=== PATIENT | male | born 1990 | race Caucasian/White ===

== ENCOUNTER 2018-02-16 16:08 | Emergency (ER) | payer SELFPAY ==
[2018-02-16 16:09] VITALS: PULSE 138; RESP 17; O2SAT 100
[2018-02-16 16:10] VITALS: BP 147/96; PULSE 132; RESP 17; TEMP 37.4; O2SAT 100; BMI 19.8
--- NOTE | 2018-02-16 16:16 | NURSING ---
NO OLD EKGS
--- NOTE | 2018-02-16 16:18 | RAD_ITS ---
STUDY: X-RAY CHEST REASON FOR EXAM: Male, 27 years old. Chest pain, anxiety. TECHNIQUE: Portable chest. COMPARISON: None. FINDINGS: The lungs are clear and expanded. There is no demonstrated pleural abnormality. Normal size heart. Normal mediastinum and irena. Normal visualized pulmonary arteries. Normal visualized aortic arch and descending thoracic aorta. Normal visualized thoracic spine. Normal visualized ribs, clavicles, and shoulders. There is no demonstrated abnormality of the visualized soft tissue structures of the upper abdomen. RAD/Chest 1 View (Portable) IMPRESSION: Normal x-ray examination of the chest. Electronically Signed: Yoly Santos MD at 17:05 EST Tel , Service support ,
--- NOTE | 2018-02-16 16:18 | EKG12_ITS ---
Test Reason : CP Blood Pressure : / mmHG Vent. Rate : 131 BPM Atrial Rate : 131 BPM P-R Int : 146 ms QRS Dur : 088 ms QT Int : 284 ms P-R-T Axes : 075 076 049 degrees QTc Int : 419 ms Sinus tachycardia Otherwise normal ECG Confirmed by NILAM PARSONS MD ([id number]), news editor ESA LEE ([id number]) on 02/19/2018 1:32:01 PM Referred By: PERLA Confirmed By:NILAM PARSONS MD
--- NOTE | 2018-02-16 16:23 | ED.VISSUMM ---
- ER Visit Summary Date of Service: 02/16/18 Chief Complaint: Chest pain History of Present Illness: The patient is a 27 M who reports onset of chest pain approximate hour and a half prior to arrival. Patient states that he was helping his sister move at the time was going up and down steps. He had also used marijuana just prior to chest pain onset. He does admit to being under a lot of stress and having a lot of anxiety recently. Patient states he is taking Suboxone regularly. He used meth this morning and felt fine after this. He did use the marijuana just prior to the chest pain onset. Physical Examination: Blood pressure is 147/96, temperature 99.4, heart rate 132, respiratory rate 17, pulse ox 100% room air. Patient sitting upright in bed. He is somewhat anxious. He is alert and talkative. Head neck examination is unremarkable. Heart is tachycardic and regular. Lung sounds are clear. Abdomen is soft nontender. Peripheral pulses are strong throughout. Test Results: EKG is sinus tach at [address] change. Chest x-ray unremarkable. CBC is significant only for a white count of 11.9 with normal differential. Chemistry studies reveal mild hypokalemia with potassium 3.4. Troponin is negative. TSH is normal. Emergency Department Course and Treatment: Patient was given fluids along with 0.5 mg of IV Ativan. Heart rate has improved into the 80s and 90s. Patient's symptoms have improved. I did caution him that my concern is that he had something mixed with the marijuana that he use just before symptom onset. We discussed the possibility of a panic attack as well. Patient does not want any anti-anxiety medication for home. He is given phone number for counseling center to follow-up as needed. Treatment Plan: [] Disposition: Discharge Impression: Chest pain, improved This note was generated with [employer] dictation software. It may contain incorrect words, spelling, and punctuation that were not noted in review of the chart prior to signing ED Disposition - Plan for ED Patient: Disposition: Home or Assisted Living Chief Complaint: Chest Pain Instructions: ED Stress React, ED Chest Pain Atypical Unkn Cause Referrals: Counseling,Center [GROUP OF PHYSICIANS] - As Needed Olegario Malin DO [NON CLINICAL AFFILIATE] - As Needed
[2018-02-16 16:25] LABS: Absolute Lymphocyte Count 3.31 X10^3/ul (0.83-4.51); Absolute Neutrophil Count 7.3 X10^3/uL (2.0-7.7); Basophil# 0.05 X10^3/uL; Basophil% 0.4 % (0-1); Eosinophil# 0.17 X10^3/uL; Eosinophils% 1.4 % (0-5); Hematocrit 41.6 % (40-54); Hemoglobin 14.4 g/dl (13.0-16.5); Lymphocyte # 3.31 X10^3/ul (4.0); Lymphocyte % 27.8 % (19-41); Mean Corp Hgb Conc 34.6 g/gl (32-36); Mean Corpuscular Volume 92.4 fL (80-94); Mean Platelet Vol. 10.5 fl (6.2-12.0); Monocyte# 1.02 X10^3/uL; Monocyte% 8.6 % (0-10); Neutrophil # 7.29 X10^3/uL (2.7-7.7); Neutrophil % 61.3 % (47-70); Platelet Count 275 K/mm3 (150-450); RBC Distribution Width CV 12.6 % (11.6-14.6); RBC Distribution Width SD 40.8 fl (35.1-43.9); White Blood Count 11.9 K/mm3 (4.4-11.0)
[2018-02-16 16:26] VITALS: O2SAT 94
[2018-02-16 16:26] LABS: POSITIVE COUNT NO; POSITIVE DIFFERENTIAL NO; POSITIVE MORPHOLOGY NO
[2018-02-16] MEDS: 0.9% Normal Saline 1,000 ML 1000 ML IV (16:34)
[2018-02-16] MEDS: LORazepam 2 MG/ML Syringe 0.5 MG IV (16:34)
--- NOTE | 2018-02-16 16:35 | NURSING ---
COAGS HEMOLIZED. LAB WILL REPRINT LABELS
[2018-02-16 16:48] LABS: Anion Gap 14 (5-15); BUN 16 mg/dL (7-18); BUN/Creat Ratio 13.1 RATIO (10-20); Calcium,Total 9.2 mg/dL (8.5-10.1); Chloride 102 mmol/L (98-107); Creatinine, Serum 1.22 mg/dL (0.70-1.30); EST Glomerular Filtration Rate 76 mL/min (>60); Est Glom Filt Rate - Afr Amer 91 mL/min (>60); Estimated Creatinine Clearance 82.72 ml/min; Glucose 109 mg/dL (74-106); Potassium 3.4 mmol/L (3.5-5.1); Sodium Level 139 mmol/L (136-145); Thyroid Stim Hormone (TSH) 1.79 uIU/mL (0.358-3.74)
[2018-02-16 17:09] VITALS: BP 135/83; PULSE 111; RESP 16; O2SAT 96
[2018-02-16 17:53] LABS: D-Dimer Quantitative (DVT/PE) < 0.27 FEU/ug/m (0.27-0.49)
[2018-02-16 19:00] VITALS: BP 131/77; PULSE 109
--- NOTE | 2018-02-16 19:49 | ED.DEP ---
ED Disposition - Plan for ED Patient: Disposition: Home or Assisted Living Chief Complaint: Chest Pain Instructions: ED Chest Pain Atypical Unkn Cause, ED Stress React Referrals: Olegario Malin DO [NON CLINICAL AFFILIATE] - As Needed Counseling,Center [GROUP OF PHYSICIANS] - As Needed
[2018-02-16 19:55] VITALS: BP 134/81; PULSE 97; RESP 16; O2SAT 98
== END 2018-02-16 19:56 | disposition home or self-care (01) ==
PROVIDERS: Emergency Provider Emergency Medicine
DX: R07.9 Chest pain, unspecified (principal); R06.00 Dyspnea, unspecified; E87.6 Hypokalemia; F12.90 Cannabis use, unspecified, uncomplicated; F15.90 Other stimulant use, unspecified, uncomplicated; Z72.0 Tobacco use
CPT/HCPCS: 36415; 71045; 80048; 84443; 84484; 85025; 85379; 93005; 96361; 96374; 99284; J7030; A4216

== ENCOUNTER 2019-07-20 00:52 | Emergency (ER) | payer MEDICAID, SELFPAY ==
[2019-07-20 00:55] VITALS: BP 150/98; PULSE 91; RESP 16; TEMP 37.2; O2SAT 99; BMI 20.7
--- NOTE | 2019-07-20 01:07 | ED.VIS.GEN ---
History of Present Illness Chief Complaint: Dental Informant: Patient Narrative: Patient stated he is having pain in his left upper tooth. He has a bad cavity there. It started hurting him last week. He has been on penicillin 2 tablets twice a day for the last few days. He stated he was supposed to take 1 tablet every 8 hours but is taking it on his own dosing schedule. He stated he needs to follow-up with a dentist. He ate some sugar yesterday which exacerbated his pain. He has been using Tylenol and ibuprofen today. He is on Suboxone. Current severity is mild. No drainage or lump to his gumline. No facial swelling Past Medical History - Allergies and Home Meds Allergies/Adverse Reactions: Allergies No Known Allergies Allergy (Verified 07/20/19 00:52) Primary Care Physician: Care Physician,No Primary [Primary Care Provider] - Prior records reviewed: Yes Past Medical History: - - Reviewed Surgical History: noncontributory Smoking Status: Current every day smoker Alcohol: None Drugs: None Review of Systems General: Denies: Chills, Fever, Sweats Eyes: Denies: Visual changes - bilaterally, Diplopia ENT: Reports: - - See HPI. Denies: Rhinorrhea, Sore throat Cardiovascular: Denies: Chest pain, Palpitations Respiratory: Denies: Dyspnea, Cough, Dyspnea on exertion Gastrointestinal: Denies: Abdominal pain, Nausea, Vomiting, Diarrhea, Melena, Hematochezia Genitourinary: Denies: Dysuria, Hematuria, Frequency Musculoskeletal: Denies: Back pain, Extremity Pain Skin: Denies: Rash, Wounds Neurological: Reports: Headache - Mild left-sided headache secondary to his dental pain. Denies: Weakness, Numbness Physical Exam Vital Signs/Narrative: Vital Signs Temp Pulse Resp BP Pulse Ox 07/20/19 00:55 98.9 F 91 16 150/98 H 99 General: Well nourished, Well developed, No Acute Distress Head: Normocephalic, Atraumatic Eyes: Perrl, EOMI ENT: Moist mucous membranes, No rhinorrhea, - - Dental exam shows a cavity in his left posterior molar. It is down to the gumline. There is no swelling to the gum. There is no periapical abscess on the gumline. There is no ANUG or Milad's angina Neck: Supple, Nontender Cardiovascular: Regular rate, Regular rhythm, No murmurs Respiratory: No distress, CTA bilaterally, Chest nontender Abdomen: Soft, Nontender, Nondistended, Normal bowel sounds Back: Nontender, Normal Inspection Extremities: Nontender, No edema Skin: Normal color, No rash Neurological: Alert, Oriented x3, Cranial nerves II-XII grossly intact, Normal Strength, Normal Sensation Psychological: Normal affect, Normal Mood Diagnostic/Tx/Re-eval - Medical Decision Making Patient will be switched to clindamycin and will stop his penicillin given his first dose here. We will follow-up with dentistry. Given injection of Toradol. Will use ice packs. At this time I feel he likely has an infected tooth ED Disposition - Plan for ED Patient: Disposition: Home or Assisted Living Diagnosis: Dental abscess Instructions: Dental Abscess Prescriptions: Clindamycin [Cleocin] 300 mg PO 4X/DAY #56 cap Transmission Status: Pending to [facility]/pharmacy #[id number] Referrals: Care Physician,No Primary [Primary Care Provider] - Dentist,Your [STAFF PHYSICIAN] -
[2019-07-20] MEDS: Ketorolac 30 MG/ML Syringe IM (01:19)
[2019-07-20] MEDS: Clindamycin HCl 150 MG Capsule 300 MG PO (01:19)
[2019-07-20 01:21] VITALS: BP 129/93; PULSE 85; RESP 16; O2SAT 98
== END 2019-07-20 01:47 | disposition home or self-care (01) ==
LOC: ED 01:18
PROVIDERS: Emergency Provider Emergency Medicine
DX: K04.7 Periapical abscess without sinus (principal); F17.200 Nicotine dependence, unspecified, uncomplicated; Z79.899 Other long term (current) drug therapy
CPT/HCPCS: 96372; 99283

== ENCOUNTER 2019-09-17 09:39 | Emergency (ER) | payer MEDICAID, SELFPAY ==
[2019-09-17 09:41] VITALS: BP 115/77; PULSE 59; RESP 16; TEMP 36.2; O2SAT 100; BMI 20.2
--- NOTE | 2019-09-17 10:11 | ED.RN ---
PT REFUSING XRAY AND STATES HE WILL FOLLOW UP WITH PCP. PT WALKED OUT OF ED.
--- NOTE | 2019-09-17 10:14 | ED.VIS.GEN ---
History of Present Illness Chief Complaint: Constipation Informant: Patient Narrative: Patient presents the emergency room with 1 week of constipation. He states he is going but he is passing very small hard pieces. He tells me that he has had issues with constipation in the past and has been to the hospital 5 times. He tried some magnesium citrate last night with no relief. States he did his research and he needs a CAT scan because his blood flow to his colon has stopped. He states that this happened over the past year when he was using methamphetamines but he has not used anything for the past 3 months. He states that today he threw up and that is when he did his research and knows that he needs to have an emergent CT and probable surgery. He is passing gas. No fevers. He is on chronic Suboxone therapy since 2011. He was told he needs to take daily stool softeners but he states he forgets to take them but he does not forget to take his Suboxone. He states that he had made a follow-up appointment with her primary care physician but he was using drugs so he missed it. Past Medical History - Allergies and Home Meds Allergies/Adverse Reactions: Allergies No Known Allergies Allergy (Verified 09/17/19 09:39) Primary Care Physician: Care Physician,No Primary [Primary Care Provider] - Surgical History: noncontributory Smoking Status: Current every day smoker Review of Systems General: Denies: Chills, Fever, Sweats Eyes: Denies: Visual changes - bilaterally, Diplopia ENT: Denies: Rhinorrhea, Sore throat Cardiovascular: Denies: Chest pain, Palpitations Respiratory: Denies: Dyspnea, Cough, Dyspnea on exertion Gastrointestinal: Reports: Vomiting, Constipation. Denies: Abdominal pain, Nausea, Diarrhea, Melena, Hematochezia Genitourinary: Denies: Dysuria, Hematuria, Frequency Musculoskeletal: Denies: Back pain, Extremity Pain Skin: Denies: Rash, Wounds Neurological: Denies: Headache, Weakness, Numbness Physical Exam Vital Signs/Narrative: Vital Signs Temp Pulse Resp BP Pulse Ox 09/17/19 09:41 97.2 F L 59 L 16 115/77 100 Inital Vital Signs reviewed: Yes General: Well nourished, Well developed, No Acute Distress Head: Normocephalic, Atraumatic Eyes: Perrl, EOMI ENT: Moist mucous membranes, No rhinorrhea Neck: Supple, Nontender Cardiovascular: Regular rate, Regular rhythm, No murmurs Respiratory: No distress, CTA bilaterally, Chest nontender Abdomen: Soft, Nontender, Nondistended, Normal bowel sounds Back: Nontender, Normal Inspection Extremities: Nontender, No edema Skin: Normal color, No rash Neurological: Alert, Oriented x3, Cranial nerves II-XII grossly intact, Normal Strength, Normal Sensation Psychological: Normal affect, Normal Mood Diagnostic/Tx/Re-eval - Medical Decision Making I informed the patient that I think it is highly unlikely that he has had gut 4 months since using methamphetamines. His abdomen is soft and nonsurgical. There are normal bowel sounds. I informed her we would be doing a x-ray to evaluate the stool pattern and we could work with developing a regimen to get his bowels appropriately moving after that. This was unacceptable to the patient and he got up and left the emergency department ED Disposition - Plan for ED Patient: Disposition: Home or Assisted Living Diagnosis: Constipation Instructions: ED Constipation Referrals: Care Physician,No Primary [Primary Care Provider] -
== END 2019-09-17 10:19 | disposition left against medical advice (07) ==
LOC: ED 10:17
PROVIDERS: Emergency Provider Emergency Medicine
DX: K59.00 Constipation, unspecified (principal); F17.200 Nicotine dependence, unspecified, uncomplicated; Z79.899 Other long term (current) drug therapy
CPT/HCPCS: 99281; 99282

== ENCOUNTER 2019-11-21 19:27 | Emergency (ER) | payer MEDICAID, SELFPAY ==
[2019-11-21 19:28] VITALS: BP 107/77; PULSE 69; RESP 18; TEMP 36.8; O2SAT 97; BMI 18.4
== END 2019-11-21 21:00 | disposition left against medical advice (07) ==
LOC: ED 20:52
PROVIDERS: Emergency Provider Emergency Medicine
DX: R10.9 Unspecified abdominal pain (principal); Z53.21 Procedure and treatment not carried out due to patient leaving prior to being seen by health care provider

== ENCOUNTER 2019-11-22 09:30 | Emergency (ER) | payer OTHER, MEDICAID, SELFPAY ==
[2019-11-21 19:28] VITALS: BMI 18.4
[2019-11-22 09:31] VITALS: BP 138/90; PULSE 86; RESP 18; TEMP 36.7; O2SAT 100; BMI 17.6
--- NOTE | 2019-11-22 09:49 | CT_ITS ---
STUDY: CT ABDOMEN AND PELVIS WITH CONTRAST REASON FOR EXAM: Male, 29 years old. ab pain with nausea and vomiting. Appendectomy RADIATION DOSAGE (If Supplied By Facility): CTDIvol = ( 11.28 ) mGy, DLP = ( 276.88 ) mGycm TECHNIQUE: Transaxial images were obtained from the dome of the diaphragm to the symphysis pubis with oral contrast. Oral and amp; IV and amp; 100mL Isovue-300 was administered. Sagittal and coronal images were reconstructed. Individualized dose optimization techniques were used for this CT. COMPARISON: Comparison is made with prior examination dated 01/24/2015. FINDINGS: The visualized lung bases are unremarkable. The visualized portions of the heart are within normal limits. Normal liver. Normal gallbladder and extrahepatic biliary system. Normal spleen. Normal pancreas. Normal bilateral adrenal glands. Normal right kidney. Normal left kidney. Normal visualized stomach. Normal small intestine. Normal colon. The patient is status post appendectomy. Normal abdominal aorta. Normal inferior vena cava. Normal retroperitoneum. Normal urinary bladder. Normal abdominal wall. Normal osseous structures. CT/Abdomen/Pelvis WITH Contrast IMPRESSION: Normal enhanced CT of the abdomen and pelvis. Electronically Signed: Jose Francisco Gutierrez, at 12:01 EDT , Service support ,
--- NOTE | 2019-11-22 09:49 | ED.VIS.GEN ---
History of Present Illness Chief Complaint: Abd Pain Informant: Patient Narrative: 29-year-old male presenting with abdominal pain which he states started in the center of his abdomen yesterday at about 6 PM. He states now it is in his bilateral flanks. He does state that he has hard stools but he has been having bowel movements. He is having flatus. He has associated nausea but he has not vomited. Patient does state that he felt very generally weak yesterday and had to leave work secondary to weakness and abdominal pain. 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 He is on Suboxone and admits to smoking marijuana. He states he was seen last week on an outpatient visit and had blood work done which they stated was normal. They did find hep to bodies but no active virus. He states his other lab work was normal. He had ultrasounds of his bilateral kidneys secondary to some hematuria he has had in the past. He has not had a report back on this. States that he is able to eat food and has even included a fiber supplement. Past Medical History - Allergies and Home Meds Allergies/Adverse Reactions: Allergies bee venom protein (honey bee) Allergy (Verified 11/22/19 10:09) Anaphylaxis Primary Care Physician: Care Physician,No Primary [Primary Care Provider] - Past Medical History: None Surgical History: noncontributory Lives: Alone Smoking Status: Unknown if ever smoked Alcohol: Occasional Drugs: Marijuana Review of Systems General: Denies: Chills, Fever, Sweats Eyes: Denies: Visual changes - bilaterally, Diplopia ENT: Denies: Rhinorrhea, Sore throat Cardiovascular: Denies: Chest pain, Palpitations Respiratory: Reports: Dyspnea Gastrointestinal: Reports: Abdominal pain, Nausea, Constipation. Denies: Melena, Hematochezia Genitourinary: Denies: Dysuria, Hematuria Musculoskeletal: Denies: Myalgias, Arthralgias Skin: Denies: Rash, Abscess Neurological: Reports: Weakness. Denies: Headache Physical Exam Vital Signs/Narrative: Vital Signs Temp Pulse Resp BP Pulse Ox 11/22/19 09:31 98.1 F 86 18 138/90 H 100 Inital Vital Signs reviewed: Yes General: Well nourished, No Acute Distress Head: Normocephalic, Atraumatic Eyes: Perrl, EOMI ENT: Moist mucous membranes Cardiovascular: Regular rate, Regular rhythm Respiratory: No distress, CTA bilaterally Abdomen: Soft, Nondistended, Tender - . Tenderness to palpation of the right tenderness to palpation of the right and left lower quadrants. Tenderness to palpation of the right and left lower quadrants.. Negative for: Guarding, Rebound tenderness Diagnostic/Tx/Re-eval Clinical Impression(s) from Imaging Studies Abdomen/Pelvis CT 11/22/19 09:49 IMPRESSION: Normal enhanced CT of the abdomen and pelvis. Electronically Signed: Jose Francisco Gutierrez, at 12:01 EDT , Service support , Laboratory Data 11/22/19 11/22/19 11/22/19 10:00 10:00 10:00 WBC 6.7 RBC 4.38 L Hgb 15.0 Hct 42.3 MCV 96.6 H MCH 34.2 H MCHC 35.5 RDW Std Deviation 44.8 H RDW Coeff of Edgardo 12.9 Plt Count 176 MPV 11.0 Immature Gran % (Auto) 0.500 Neut % (Auto) 53.1 Lymph % (Auto) 35.7 [place] % (Auto) 6.9 Eos % (Auto) 3.0 Baso % (Auto) 0.8 Absolute Neuts (auto) 3.5 Absolute Lymphs (auto) 2.38 Nucleated RBC % 0 Sodium 139 Potassium 4.0 Chloride 106 Carbon Dioxide 28.0 Anion Gap 5 BUN 14 Creatinine 0.85 Estim Creat Clear Calc 103.75 Est GFR (MDRD) Af Amer 136 Est GFR (MDRD) Non-Af 113 BUN/Creatinine Ratio 16.4 Glucose 100 Calcium 9.4 Total Bilirubin 0.70 AST 27 ALT 29 Alkaline Phosphatase 69 Total Protein 8.1 Albumin 4.6 Globulin 3.5 Albumin/Globulin Ratio 1.3 Lipase 85 Urine Color Straw Urine Clarity Clear Urine pH 7.0 Ur Specific [place] 1.010 Urine Protein Negative Urine Glucose (UA) Normal Urine Ketones Negative Urine Occult Blood Negative Urine Nitrite Negative Urine Bilirubin Negative Urine Urobilinogen Normal Ur Leukocyte Esterase Negative Urine RBC 0 SEEN Urine WBC 0-5 SEEN Ur Squamous Epith Cells 0 SEEN Urine Bacteria 0 SEEN Urine Mucus 0 SEEN - Medical Decision Making Patient presents with abdominal pain is concerned that there is something more than constipation going on in his abdomen. Patient only had very mild tenderness. He was not peritoneal. I did do blood work which was normal. He requested a CT of his abdomen pelvis which was performed and was negative for acute process. Patient is counseled he will need to follow-up with his PCP to ensure resolution. It also does seem like the patient has constipation and he was told to take 3 days of MiraLAX. He was given strict return precautions if his abdominal pain does not improve or gets worse. Patient stable discharge. Impression: 1. Abdominal pain ED Disposition - Plan for ED Patient: Disposition: Home or Assisted Living Instructions: ED Unknown Causes of Abdominal Pain Male Referrals: Care Physician,No Primary [Primary Care Provider] -
[2019-11-22] MEDS: 0.9% Normal Saline 1,000 ML 1000 ML IV (10:08)
[2019-11-22 10:16] LABS: Bacteria 0 SEEN /hpf (None Seen); Mucous, Urine 0 SEEN /hpf (<or=2+); Red Blood Cells-Urine 0 SEEN /hpf (0-5); Squamous Epithelial Cells - UA 0 SEEN /hpf (0-5)
[2019-11-22 10:20] LABS: Absolute Lymphocyte Count 2.38 X10^3/uL (0.83-4.51); Absolute Neutrophil Count 3.5 X10^3/uL (2.0-7.7); Basophil# 0.05 X10^3/uL; Basophil% 0.8 % (0-1); Hematocrit 42.3 % (40-54); Lymphocyte # 2.38 X10^3/ul (4.0); Lymphocyte % 35.7 % (19-41); Mean Corp Hgb Conc 35.5 g/dL (32-36); Mean Corpuscular Hgb 34.2 pg (27.0-32.0); Mean Corpuscular Volume 96.6 fL (80-94); Monocyte# 0.46 X10^3/uL; Monocyte% 6.9 % (0-10); NRBC Flagged by Analyzer 0 % (0-5); Neutrophil # 3.54 X10^3/uL (2.7-7.7); Neutrophil % 53.1 % (47-70); Platelet Count 176 K/mm3 (150-450); RBC Distribution Width CV 12.9 % (11.6-14.6); RBC Distribution Width SD 44.8 fl (35.1-43.9); Red Blood Count 4.38 M/mm3 (4.6-6.2); White Blood Count 6.7 K/mm3 (4.4-11.0)
[2019-11-22 10:40] LABS: ALB/GLOB Ratio 1.3 RATIO (0.9-2.4); AST(SGOT) 27 U/L (15-37); Alanine Aminotransfer ALT/SGPT 29 U/L (16-61); Albumin, Serum 4.6 g/dL (3.2-5.0); Alkaline Phosphatase 69 U/L (45-117); Anion Gap 5 (5-15); BUN 14 mg/dL (7-18); BUN/Creat Ratio 16.4 RATIO (10-20); Calcium,Total 9.4 mg/dL (8.5-10.1); Chloride 106 mmol/L (98-107); Creatinine, Serum 0.85 mg/dL (0.70-1.30); EST Glomerular Filtration Rate 113 mL/min (>60); Est Glom Filt Rate - Afr Amer 136 mL/min (>60); Estimated Creatinine Clearance 103.75 ml/min; Globulin 3.5 g/dL (2.2-4.2); Glucose 100 mg/dL (74-106); Lipase 85 U/L (73-393); Protein, Total 8.1 g/dL (6.4-8.2); Sodium Level 139 mmol/L (136-145)
[2019-11-22 11:28] LABS: Color, Urine Straw (Yellow); Glucose, Dipstick Normal (Normal); Ketone-Dipstick Negative (Negative); Leukocyte Esterase-Dipstick Negative /ul (Negative); Nitrite-Dipstick Negative (Negative); Occult Blood-Urine Negative /ul (Negative); Protein-Dipstick Negative (Negative); Urine Bilirubin Dipstick Negative (Negative); Urine Clarity Clear (Clear); Urine Urobilinogen Normal (Normal)
[2019-11-22 11:38] LABS: White Blood Cells 0-5 SEEN /hpf (0-5)
== END 2019-11-22 13:10 | disposition home or self-care (01) ==
PROVIDERS: Emergency Provider Student in an Organized Health Care Education/Training Program
DX: R10.9 Unspecified abdominal pain (principal)
CPT/HCPCS: 74177; 80053; 81001; 83690; 85025; 96361; 96374; 99283; J7030; Q9967

== ENCOUNTER 2019-12-20 19:36 | Emergency (ER) | payer MEDICAID, SELFPAY ==
[2019-12-20 19:36] VITALS: BP 130/88; PULSE 72; RESP 16; TEMP 36.2; O2SAT 100; BMI 18.6
--- NOTE | 2019-12-20 21:04 | ED.VIS.GEN ---
History of Present Illness Chief Complaint: General Illness Informant: Patient Onset: Month(s) Context: Gradual Onset Timing: Intermittent Current Severity: Moderate Maximum Severity: Moderate Narrative: Patient is a 29-year-old male that presents to the emergency department multiple complaints. The patient states that he has been dealing with abdominal pain for the past 6 months. He states he will intermittently get headache, fatigue, and worsening pain. The patient states he is been back at work, but is scheduled to have endoscopy this coming Thursday. He states when he is at work he has to do a lot of lifting and twisting. He feels like it is making his symptoms worse. He states that he is concerned that he is unable to do his job because of his symptoms. He states there is been really no change in his symptoms. He is been the same symptoms he is been worked up for over the past 6 months. He denies fevers or chills. He denies any blood in his bowels. Prior similar symptoms: No Recent Illness/Hospitalization: No Past Medical History - Allergies and Home Meds Allergies/Adverse Reactions: Allergies bee venom protein (honey bee) Allergy (Verified 11/22/19 10:09) Anaphylaxis Primary Care Physician: Olegario Malin DO [Primary Care Provider] - Prior records reviewed: Yes Past Medical History: None Surgical History: noncontributory Smoking Status: Current every day smoker Review of Systems General: Denies: Chills, Fever, Sweats Eyes: Denies: Visual changes - bilaterally, Diplopia ENT: Denies: Rhinorrhea, Sore throat Cardiovascular: Denies: Chest pain, Palpitations Respiratory: Denies: Dyspnea, Cough, Dyspnea on exertion Gastrointestinal: Reports: Abdominal pain, Nausea. Denies: Vomiting, Diarrhea, Melena, Hematochezia Genitourinary: Denies: Dysuria, Hematuria, Frequency Musculoskeletal: Denies: Back pain, Extremity Pain Skin: Denies: Rash, Wounds Neurological: Denies: Headache, Weakness, Numbness Physical Exam Vital Signs/Narrative: Vital Signs Temp Pulse Resp BP Pulse Ox 12/20/19 19:36 97.2 F L 72 16 130/88 H 100 Inital Vital Signs reviewed: Yes General: Well nourished, Well developed, No Acute Distress Head: Normocephalic, Atraumatic Eyes: Perrl, EOMI ENT: Moist mucous membranes, No rhinorrhea Neck: Supple, Nontender Cardiovascular: Regular rate, Regular rhythm, No murmurs Respiratory: No distress, CTA bilaterally, Chest nontender Abdomen: Soft, Nontender, Nondistended, Normal bowel sounds Back: Nontender, Normal Inspection Extremities: Nontender, No edema Skin: Normal color, No rash Neurological: Alert, Oriented x3, Cranial nerves II-XII grossly intact, Normal Strength, Normal Sensation Psychological: Normal affect, Normal Mood Diagnostic/Tx/Re-eval - Medical Decision Making The patient presents with exacerbation of his chronic symptoms. I did discuss options with him. He states he does not want any further work-up. He was just concerned because he is unsure if he should be in work. I told him that I would write him on for a few days until he can get his endoscopy because it seems like work is exacerbating his symptoms. He is comfortable with this plan of care and will be discharged home. Impression 1. Exacerbation of chronic abdominal pain ED Disposition - Plan for ED Patient: Instructions: ED Unknown Causes of Abdominal Pain Male Referrals: Olegaroi Malin DO [Primary Care Provider] -
[2019-12-20 22:00] VITALS: RESP 16
== END 2019-12-20 22:01 | disposition home or self-care (01) ==
PROVIDERS: Emergency Provider Emergency Medicine; PCP Student in an Organized Health Care Education/Training Program
DX: R10.9 Unspecified abdominal pain (principal); G89.29 Other chronic pain; R53.83 Other fatigue; R51 Headache; F17.200 Nicotine dependence, unspecified, uncomplicated
CPT/HCPCS: 99282

== ENCOUNTER 2022-06-09 13:43 | Emergency (ER) | payer MEDICAID, SELFPAY ==
[2022-06-09 13:43] VITALS: BP 168/106; PULSE 115; RESP 16; TEMP 36.6; O2SAT 100; BMI 23.3
--- NOTE | 2022-06-09 15:11 | EDS_ITS ---
HPI History of Present Illness Chief Complaint: Substance Abuse Informant: patient Narrative Narrative: Patient presents requesting assistance with detox from fentanyl. Patient states he has been using drugs off and on for the last 11 or 12 years. He has been th rough detox 4 times and been fairly successful on his Suboxone treatment. He relapsed about a year ago and has been injecting heroin. Last use was at 7:30 AM yesterday. He also uses medical marijuana and does admit to some methamphetamine use 2 or 3 times a week to help with anxiety. Friend with him in the room also states that he took several tabs of Xanax at 1:00 this morning. [facility] Medical History (Updated 06/09/22 @ 17:[address] Zahraa Stokes MD) Hepatitis C Substance abuse Home Medications buprenorphine 8 mg-naloxone 2 mg sublingual film (Suboxone) 16 mg PO DAILY 02/16/18 [History Last Taken Unknown] Allergy/AdvReac Type Severity Reaction Status Date / Time bee venom protein (honey bee) Allergy Anaphylaxis Verified 06/09/22 13:45 Surgical History Hx of appendectomy Social History (Updated 06/09/22 @ 15:[address] Mena Silveira MD) Smoking Status: Current every day smoker tobacco type: cigarettes substance use type: marijuana, opiates and methamphetamine ROS ROS ED Constitutional Constitutional ED: Denies chills or fever(s) Eyes Eyes: Denies change in vision or discharge from eye(s) ENT ENT ED: Denies discharge from eye(s), rhinorrhea or sore throat Cardiovascular Cardiovascular: Denies chest pain or palpitations Respiratory/Chest Respiratory/Chest: Denies cough or dyspnea Gastrointestinal Gastrointestinal: Denies abdominal pain, diarrhea, nausea or vomiting Genitourinary Genitourinary ED: Denies difficulty urinating or dysuria Musculoskeletal Musculoskeletal: Denies back pain or extremity pain Integumentary Denies Abrasions or rash Neurologic Neurologic: Denies headache(s) or weakness Psychiatric Psychiatric: Reports anxiety; Denies depression or suicidal ideation Allergic/Immunologic Allergic/Immunologic ED: Denies lip swelling or urticaria EXAM Physical Exam Const Vital Signs: 06/09/22 13:43 06/09/22 16:26 06/09/22 17:00 Temperature 97.8 F 97.5 F L Temperature Source Temporal Temporal Pulse Rate 115 H 75 Respiratory Rate 16 18 Blood Pressure 168/106 H 137/87 H 138/84 H Blood Pressure Mean 126 103 102 Pulse Ox 100 98 Oxygen Delivery Method Room Air Room Air Positive well nourished and well developed General Appearance ED: well developed HEENT Reports normocephalic and head/scalp atraumatic Eyes PERRL and EOMs intact bilaterally Neck supple Chest Wall inspection of chest normal and palpation of chest normal Resp normal respiratory effort and clear to auscultation bilaterally Cardio regular rhythm Rate: tachycardic GI normal to inspection, nondistended, normoactive bowel sounds Palpation: soft Extremity normal to inspection Extremity Narrative: Track mancini noted to both arms. Neuro oriented x3 and no sensory deficits noted Sensorium / Orientation: alert Motor Exam: strength 5/5 throughout Psych mental status grossly normal MDM MDM MDM Narrative Medical decision making narrative: Lab work for detox program ordered. Patient reviewed the contract and agrees. Lab Data Labs: Laboratory Results - last 24 hr 06/09/22 06/09/22 06/09/22 15:03 15:15 15:15 WBC 6.5 RBC 4.22 L Hgb 13.2 Hct 40.0 MCV 94.8 H MCH 31.3 MCHC 33.0 RDW Std Deviation 43.0 RDW Coeff of Edgardo 12.3 Plt Count 249 MPV 9.7 Immature Gran % (Auto) 0.300 Neut % (Auto) 57.8 Lymph % (Auto) 30.4 Canadian % (Auto) 10.0 Eos % (Auto) 0.9 Baso % (Auto) 0.6 Absolute Neuts (auto) 3.7 Absolute Lymphs (auto) 1.97 Nucleated RBC % 0 Sodium 139 Potassium 3.9 Chloride 106 Carbon Dioxide 26.0 Anion Gap 7 BUN 20 H Creatinine 0.67 L Estim Creat Clear Calc 170.14 Est GFR (MDRD) Af Amer 177 Est GFR (MDRD) Non-Af 146 BUN/Creatinine Ratio 29.8 H Glucose 106 Calcium 9.3 Total Bilirubin 0.40 Direct Bilirubin 0.10 AST 21 ALT 35 Alkaline Phosphatase 96 Total Protein 7.8 Albumin 3.9 Globulin 3.9 Urine Opiates Screen NEGATIVE Urine Methadone Screen NEGATIVE Ur Barbiturates Screen NEGATIVE Ur Phencyclidine Scrn NEGATIVE Ur Amphetamines Screen POSITIVE H MDMA (Ecstasy) Screen POSITIVE H U Benzodiazepines Scrn POSITIVE H Urine Cocaine Screen NEGATIVE U Cannabinoids Screen POSITIVE H Ur Drug Screen Comment Ethyl Alcohol 06/09/22 15:15 WBC RBC Hgb Hct MCV MCH MCHC RDW Std Deviation RDW Coeff of Edgardo Plt Count MPV Immature Gran % (Auto) Neut % (Auto) Lymph % (Auto) Canadian % (Auto) Eos % (Auto) Baso % (Auto) Absolute Neuts (auto) Absolute Lymphs (auto) Nucleated RBC % Sodium Potassium Chloride Carbon Dioxide Anion Gap BUN Creatinine Estim Creat Clear Calc Est GFR (MDRD) Af Amer Est GFR (MDRD) Non-Af BUN/Creatinine Ratio Glucose Calcium Total Bilirubin Direct Bilirubin AST ALT Alkaline Phosphatase Total Protein Albumin Globulin Urine Opiates Screen Urine Methadone Screen Ur Barbiturates Screen Ur Phencyclidine Scrn Ur Amphetamines Screen MDMA (Ecstasy) Screen U Benzodiazepines Scrn Urine Cocaine Screen U Cannabinoids Screen Ur Drug Screen Comment Ethyl Alcohol < 3.0 Treatment and Re-Evaluation Narrative: Lab work is largely unremarkable. Tox screen is positive for amphetamines, MDMA, benzos, cannabinoids. Patient discussed with hospitalist who will see the patient with plan to admit to [facility]. Addendum: Prior to the patient going to the floor he decided he did not want to be admitted. He left the emergency room prior to receiving any discharge paperwork. Discharge Plan Dx/Rx/DC Orders Clinical Impression: Opiate abuse, continuous, Desire for detoxification Disposition Disposition: Acute Care Hospital [facility] Discharge Date/Time: 06/09/22 18:57
[2022-06-09 15:29] LABS: Absolute Lymphocyte Count 1.97 X10^3/uL (0.83-4.51); Absolute Neutrophil Count 3.7 X10^3/uL (2.0-7.7); Basophil# 0.04 X10^3/uL; Basophil% 0.6 % (0-1); Eosinophil# 0.06 X10^3/uL; Eosinophils% 0.9 % (0-5); Hemoglobin 13.2 g/dL (13.0-16.5); Lymphocyte # 1.97 X10^3/ul (0.83-4.51); Lymphocyte % 30.4 % (19-41); Mean Corpuscular Hgb 31.3 pg (27.0-32.0); Mean Corpuscular Volume 94.8 fL (80-94); Mean Platelet Vol. 9.7 fl (6.2-12.0); Monocyte# 0.65 X10^3/uL; NRBC Flagged by Analyzer 0 % (0-5); Neutrophil # 3.73 X10^3/uL (2.7-7.7); Neutrophil % 57.8 % (47-70); Platelet Count 249 K/mm3 (150-450); RBC Distribution Width CV 12.3 % (11.6-14.6); Red Blood Count 4.22 M/mm3 (4.6-6.2); White Blood Count 6.5 K/mm3 (4.4-11.0)
[2022-06-09 15:55] LABS: Amphetamine Urine VISTA POSITIVE (<1000 ng/mL); Barbiturate Urine VISTA NEGATIVE (< 200 ng/mL); Benzodiazepine Urine VISTA POSITIVE (< 200 ng/mL); Cocaine Urine VISTA NEGATIVE (< 300 ng/mL); Ecstacy Urine VISTA POSITIVE (< 500 ng/mL); Methadone Urine VISTA NEGATIVE (< 300 ng/mL); PCP Urine VISTA NEGATIVE (< 25 ng/mL); THC Urine VISTA POSITIVE (< 50 ng/mL); Vista UDS pH Range 6
[2022-06-09 15:56] LABS: AST(SGOT) 21 U/L (15-37); Alanine Aminotransfer ALT/SGPT 35 U/L (16-61); Albumin, Serum 3.9 g/dL (3.2-5.0); Alkaline Phosphatase 96 U/L (45-117); Anion Gap 7 (5-15); BUN 20 mg/dL (7-18); BUN/Creat Ratio 29.8 RATIO (10-20); Calcium,Total 9.3 mg/dL (8.5-10.1); Chloride 106 mmol/L (98-107); Creatinine, Serum 0.67 mg/dL (0.70-1.30); EST Glomerular Filtration Rate 146 mL/min (>60); Est Glom Filt Rate - Afr Amer 177 mL/min (>60); Estimated Creatinine Clearance 170.14 ml/min; Globulin 3.9 g/dL (2.2-4.2); Glucose 106 mg/dL (74-106); Potassium 3.9 mmol/L (3.5-5.1); Protein, Total 7.8 g/dL (6.4-8.2); Sodium Level 139 mmol/L (136-145)
[2022-06-09 15:57] LABS: Alcohol, Blood (Medical)-Serum < 3.0 mg/dL
[2022-06-09 16:26] VITALS: BP 137/87; PULSE 75; RESP 18; TEMP 36.4; O2SAT 98
[2022-06-09 17:00] VITALS: BP 138/84
--- NOTE | 2022-06-09 17:06 | HP.PCM.HOS_ITS ---
HPI - General General Date of Admission: 06/09/22 Date of Service: 06/09/22 Chief Complaint: Opioid detox HPI Narrative JENNIFER CARTY, is a 31 M history of hepatitis C and polysubstance abuse who presented to [facility] 06/09/2022 for opioid detox. He has been using opiates for 12 years and has gone through self detox roughly 4 times. He has been using fentanyl recently roughly 1 g a day and frequently injects this, last use was 730 yesterday and he was having significant anxiety and restlessness and feeling unwell so he took 2 mg of Xanax this morning before coming in and is feeling better. Also uses meth regularly twice a week and endorses a medical marijuana card. He denies using Xanax more than once or twice a month and denies alcohol use. Does use tobacco products. Reports he follows with an outpatient substance abuse program and is prescribed Suboxone but has not began taking this as he was still using opioids. REPLACED BY [facility] Medical History (Updated 06/09/22 @ 17:[address] Zahraa Stokes MD) Hepatitis C Substance abuse Home Medications buprenorphine 8 mg-naloxone 2 mg sublingual film (Suboxone) 16 mg PO DAILY 02/16/18 [History Last Taken Unknown] Allergy/AdvReac Type Severity Reaction Status Date / Time bee venom protein (honey bee) Allergy Anaphylaxis Verified 06/09/22 13:45 Surgical History Hx of appendectomy Social History (Updated 06/09/22 @ 15:[address] Mena Silveira MD) Smoking Status: Current every day smoker tobacco type: cigarettes substance use type: marijuana, opiates and methamphetamine ROS ROS Narrative General: Denies fever or chills HENT: Denies headache, denies stuffy nose, denies sore throat EYES: Denies changes in vision Resp: Denies cough, denies shortness of breath Cardiac: Denies chest pain GI: Denies abdominal pain, denies changes in bowel, denies nausea, denies vom iting : Denies changes in urination Extremity: Denies swelling MSK: Denies weakness Neuro: Denies any numbness, denies tingling Heme: Denies any bleeding or bruising Skin: Denies rashes Psychiatric: Anxiety improving after Xanax Vital Signs Vital Signs Vital Signs: 06/09/22 13:43 06/09/22 16:26 Temperature 97.8 F 97.5 F L Temperature Source Temporal Temporal Pulse Rate 115 H 75 Respiratory Rate 16 18 Blood Pressure 168/106 H 137/87 H Blood Pressure Mean 126 103 Pulse Ox 100 98 Oxygen Delivery Method Room Air Room Air Weight Weight: 75.807 kg Body Mass Index (BMI) 23.3 Physical Exam Narrative General: Alert, oriented, no apparent distress HEENT: Atraumatic, normocephalic Eyes: Anicteric, normal conjunctiva, extraocular movements grossly intact Neck: Supple Respiratory: Clear to auscultation bilaterally, normal respiratory effort Cardiovascular: Regular rate and rhythm GI: Soft, nontender, nondistended Extremities: No edema Musculoskeletal: Moving all extremities Neuro: No overt focal neurological deficits Skin: No rashes appreciated, appears to have track mancini on arms Psych: Cooperative Results Lab / Micro Data Result Diagrams: 06/09/22 15:15 06/09/22 15:15 Labs: Laboratory Results - last 24 hr 06/09/22 15:03: Urine Opiates Screen NEGATIVE, Urine Methadone Screen NEGATIVE, Ur Barbiturates Screen NEGATIVE, Ur Phencyclidine Scrn NEGATIVE, Ur Amphetamines Screen POSITIVE H, MDMA (Ecstasy) Screen POSITIVE H, U Benzodiazepines Scrn POSITIVE H, Urine Cocaine Screen NEGATIVE, U Cannabinoids Screen POSITIVE H, Ur Drug Screen Comment 06/09/22 15:15: WBC 6.5, RBC 4.22 L, Hgb 13.2, Hct 40.0, MCV 94.8 H, MCH 31.3, MCHC 33.0, RDW Std Deviation 43.0, RDW Coeff of Edgardo 12.3, Plt Count 249, MPV 9.7, Immature Gran % (Auto) 0.300, Neut % (Auto) 57.8, Lymph % (Auto) 30.4, Wolfe % (Auto) 10.0, Eos % (Auto) 0.9, Baso % (Auto) 0.6, Absolute Neuts (auto) 3.7, Absolute Lymphs (auto) 1.97, Nucleated RBC % 0 06/09/22 15:15: Sodium 139, Potassium 3.9, Chloride 106, Carbon Dioxide 26.0, Anion Gap 7, BUN 20 H, Creatinine 0.67 L, Estim Creat Clear Calc 170.14, Est GFR (MDRD) Af Amer 177, Est GFR (MDRD) Non-Af 146, BUN/Creatinine Ratio 29.8 H, Glucose 106, Calcium 9.3, Total Bilirubin 0.40, Direct Bilirubin 0.10, AST 21, ALT 35, Alkaline Phosphatase 96, Total Protein 7.8, Albumin 3.9, Globulin 3.9 06/09/22 15:15: Ethyl Alcohol < 3.0 Assessment & Plan Assessment/Plan (1) Opiate abuse, continuous: PLAN: Plan #Acute opiate withdrawal - Subutex taper initiated - As needed Tylenol, ibuprofen, bowel regimen, gabapentin, Bentyl, Vistaril, methocarbamol, clonidine - As needed trazodone nightly - As needed antiemetics -Once patient begins to clinically improve will discuss further discharge planning #Polysubstance use -Initiate Subutex taper -UDS positive for amphetamines, ecstasy, benzodiazepines, cannabinoids and alcohol negative -Given history do not think he will withdrawal from Xanax or alcohol #History of hepatitis C -Outpatient follow-up #Tobacco use disorder -Nicotine patch -Advised cessation #DVT ppx: Ambulatory Zahraa Stokes MD Charges/Coding Visit Charges Inpatient E&M: 67509 Init Hosp L2
--- NOTE | 2022-06-09 18:21 | CM.ED ---
Social Work Note Referral Source: Case Find Referral Reason: AFY BRO met with patient and introduced herself and role as [facility] Pneumatic Tester. Patient sitting up in bed with eyes closed, in agreement to speak with ADALI. SW inquired about patient's current AOD use and interest in detox. Patient reports he injects fentanyl and last use was yesterday morning. Patient reports he is interested in detox. ADALI briefly reviewed [facility] rules including personal belongings being locked up, no outside visitors or other items and meeting with the addictions therapist for discharge/after care planning. Patient voiced understanding and reports no other questions or needs. ADALI informed treatment navigator patient is being admitted for detox and will be in [id number]. Plan: FAY ZAYAS, BHARGAV
--- NOTE | 2022-06-09 18:39 | ED.RN ---
RN WENT INTO ROOM TO OFFER FOOD TO PT AND PT DECIDES HE DOES NOT WANT TO STAY. DR ANGELO MADE AWARE WELL MED SURG.
== END 2022-06-09 18:57 | disposition short-term general hospital (02) ==
PROVIDERS: Emergency Provider Emergency Medicine; PCP Student in an Organized Health Care Education/Training Program; Visit Provider Emergency Medicine
DX: Z76.89 Persons encountering health services in other specified circumstances (principal); F11.10 Opioid abuse, uncomplicated; F17.210 Nicotine dependence, cigarettes, uncomplicated; F15.90 Other stimulant use, unspecified, uncomplicated; Z91.14 Patient's other noncompliance with medication regimen
CPT/HCPCS: 80048; 80076; 80307; 82077; 85025; 99284